=== PATIENT | female | born 2005 | race Caucasian/White ===

== ENCOUNTER 2024-08-08 20:25 | Emergency (ER) | payer OTHER ==
[~2024-08-08] VITALS: Ht 152.4 cm; Wt 85.0 kg
[2024-08-08] MEDS ORDERED: DIPHTH,PERTUSS(ACELL),TET VAC 0.5 ML SYRINGE IM ONE (20:45)
[2024-08-08 21:11] VITALS: BP 155/89
== END 2024-08-08 21:11 | disposition home or self-care (01) ==
LOC: ED 20:25
DX: S61.210A Laceration without foreign body of right index finger without damage to nail, initial encounter (principal); W26.0XXA Contact with knife, initial encounter; Z23 Encounter for immunization; Z88.0 Allergy status to penicillin; Z88.5 Allergy status to narcotic agent
CPT/HCPCS: 12001; 90471; 90715; 99282-25

== ENCOUNTER 2025-02-03 04:09 | Emergency (ER) | payer OTHER ==
[~2025-02-03] VITALS: Ht 154.9 cm; Wt 87.5 kg
[2025-02-03] MEDS ORDERED: ALBUTEROL/IPRATROPIUM 3 ML NEB INH ONE (04:30)
[2025-02-03 04:52] LABS: CORONAVIRUS COVID-19 AG NEGATIVE (NEGATIVE)
[2025-02-03] MEDS ORDERED: XOPENEX HFA15 GM INH (05:02)
[2025-02-03] MEDS ORDERED: GUAIFENESIN/CODEINE 60 ML HOME.PACK PO ONE (05:15)
[2025-02-03] MEDS ORDERED: AZITHROMYCIN 250 MG HOME.PACK PO ONE (05:15)
[2025-02-03 05:28] VITALS: BP 137/87
[2025-02-05] MEDS ORDERED: BENZONATATE100 MG PO (00:03)
== END 2025-02-03 05:20 | disposition home or self-care (01) ==
LOC: ED 04:09
PROVIDERS: Family Medicine
DX: J45.901 Unspecified asthma with (acute) exacerbation (principal); M19.90 Unspecified osteoarthritis, unspecified site; Z88.0 Allergy status to penicillin; Z88.1 Allergy status to other antibiotic agents; Z88.5 Allergy status to narcotic agent
CPT/HCPCS: 36415; 71045; 94640; 99285-25

== ENCOUNTER 2025-02-06 00:21 | Emergency (ER) | payer OTHER, BC ==
[~2025-02-06] VITALS: Ht 154.9 cm; Wt 86.4 kg
[~2025-02-06 00:21] MED LIST: BENZONATATE100 MG PO; XOPENEX HFA15 GM INH
--- OUTSIDE RECORDS SUMMARY | 2025-02-06 00:28 | XMS ---
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 [place] - 2 Visits in 30 Days CARE PROVIDERS MOUSTAPHA RAMIREZ Nurse Practitioner: Family Current PHONE: [phone] [place], [facility]/Center: [facility] ([facility]) PHONE: [phone] EMILE RIOS Physician Mental Hygiene Consultant Current PHONE: [phone] Rosalia has no Care Guidelines for this patient. E.D. VISIT COUNT (12 MO.) 4 SALEEM Malhotra TOTAL 4 NOTE: Visits indicate total known visits. ED/UCC VISIT TRACKING (12 MO.) 02/06/2025 00:22 SALEEM Vasquez [place] TYPE: Emergency COMPLAINT: - DIFFICULTY BREATHING 02/04/2025 22:57 SALEEM Vasquez [place] TYPE: Emergency COMPLAINT: - POSS MEDICATION REACTION 02/03/2025 04:09 SALEEM Vasquez [place] TYPE: Emergency COMPLAINT: - COLD SYMPTOMS DIAGNOSES: - Allergy status to narcotic agent - Allergy status to other antibiotic agents - Allergy status to penicillin - Shortness of breath - Unspecified asthma with (acute) exacerbation - Unspecified osteoarthritis, unspecified site 08/08/2024 20:26 SALEEM Vasquez [place] TYPE: Emergency COMPLAINT: - CUT FINGER DIAGNOSES: - Allergy status to narcotic agent - Allergy status to penicillin - Contact with knife, initial encounter - Encounter for immunization - Laceration without foreign body of right index finger without damage to nail, initial encounter INPATIENT VISIT TRACKING (12 MO.) No inpatient visits to display in this time frame [id number]
[2025-02-06 01:04] LABS: HEMATOCRIT 40.9 % (35.0-50.0); HEMOGLOBIN 14.2 g/dL (12.0-18.0); MCH 29.4 (27-36); MCHC 34.6 g/dl (30-36); MCV 84.8 fl (81-99); PLATELET COUNT 316 K/uL (140-440); RBC 4.83 M/ul (4.3-5.7); RDW 12.9 (10.5-15.0)
[2025-02-06 01:12] LABS: ALBUMIN 3.7 g/dL (3.4-5.0); ALBUMIN/GLOBULIN RATIO 0.86 (1.1-2.4); ANION GAP 16.8 (7-21); BILIRUBIN, TOTAL 0.2 mg/dL (0.2-1.0); BUN/CREATININE RATIO 14.28 (6.0-28.6); CALCIUM 9.2 mg/dL (8.5-10.1); CREATININE, SERUM 0.84 mg/dL (0.55-1.02); POTASSIUM 3.8 mmol/L (3.5-5.1)
[2025-02-06 01:34] LABS: LYMPHOCYTES, MANUAL DIFF 18; MONOCYTES, MANUAL DIFF 8; NEUTROPHILS, MANUAL DIFF 74
[2025-02-06] MEDS ORDERED: LORazepam 1 MG HOME.PACK PO ONE (02:45)
[2025-02-06] MEDS ORDERED: PROPRANOLOL HCL10 MG PO (02:45)
[2025-02-06] MEDS ORDERED: METOPROLOL TARTRATE 5 MG/5 ML VIAL IV ONE (02:45)
[2025-02-06 03:25] VITALS: BP 148/89
== END 2025-02-06 03:26 | disposition home or self-care (01) ==
LOC: ED 00:21
PROVIDERS: Family Medicine
DX: F41.9 Anxiety disorder, unspecified (principal); J45.909 Unspecified asthma, uncomplicated; M19.90 Unspecified osteoarthritis, unspecified site; Z88.0 Allergy status to penicillin; Z88.1 Allergy status to other antibiotic agents; Z88.5 Allergy status to narcotic agent
CPT/HCPCS: 36415; 71260; 80053; 84703; 85025; 93242; 93244; 99284-25; Q9967

== ENCOUNTER 2025-07-02 16:38 | Emergency (ER) | payer BC, OTHER ==
[~2025-07-02] VITALS: Ht 154.9 cm; Wt 81.0 kg
[~2025-07-02 16:38] MED LIST changes: +PROPRANOLOL HCL10 MG PO
[2025-07-02] MEDS ORDERED: VENTOLIN HFA18 GM INH (16:53)
[2025-07-02] MEDS ORDERED: LORAZEPAM0.5 MG PO (16:54)
[2025-07-02 17:17] LABS: CORONAVIRUS COVID-19 AG NEGATIVE (NEGATIVE)
[2025-07-02 19:45] VITALS: BP 144/102
== END 2025-07-02 19:45 | disposition home or self-care (01) ==
LOC: ED 16:38
PROVIDERS: Emergency Medicine
DX: B34.9 Viral infection, unspecified (principal); F41.9 Anxiety disorder, unspecified; J45.909 Unspecified asthma, uncomplicated; Z88.5 Allergy status to narcotic agent; Z88.0 Allergy status to penicillin; Z88.1 Allergy status to other antibiotic agents; Z79.899 Other long term (current) drug therapy
CPT/HCPCS: 36415; 99283